=== PATIENT | female | born 1965 | race Caucasian/White ===

== ENCOUNTER 2016-10-07 12:56 | Emergency (ER) | payer OTHER ==
[~2016-10-07] VITALS: Ht 172.7 cm; Wt 127.0 kg
[2016-10-07 13:05] VITALS: BP 146/86
== END 2016-10-07 13:38 | disposition left against medical advice (07) ==
LOC: ER 12:56 → EDBD 12:56 → ER 13:38
DX: R07.9 Chest pain, unspecified (principal); E11.9 Type 2 diabetes mellitus without complications; I10 Essential (primary) hypertension; F41.9 Anxiety disorder, unspecified
CPT/HCPCS: 93005

== ENCOUNTER 2022-02-11 19:35 | Inpatient (IN) | payer MEDICAID, OTHER ==
[~2022-02-11] VITALS: Ht 175.3 cm; Wt 124.4 kg
[2022-02-11] MEDS ORDERED: NALOXONE HCL 1MG/ML 2ML SYRINGE ONE (19:38)
[2022-02-11] MEDS ORDERED: NALOXONE HCL 1MG/ML 2ML SYRINGE IV ONE (19:45)
[2022-02-11 20:24] LABS: Basophils # (auto) 0 10 ^3/uL (0-0.2); Basophils % (auto) 0.8 % (0.0-2.0); Eosinophils # (auto) 0.1 10 ^3/uL (0-0.8); Eosinophils % (auto) 1.6 % (0.0-7.0); Hematocrit 40.1 % (36.0-46.0); Hemoglobin 12.9 g/dL (12.2-16.2); Lymphocytes # (auto) 1.1 10 ^3/uL (0.4-5.4); Lymphocytes % (auto) 20.9 % (10.0-50.0); Mean Corpuscular Hemoglobin 27.9 pg (28.0-32.0); Mean Corpuscular Hgb Conc. 32.2 g/dL (32.0-36.0); Mean Corpuscular Volume 86.5 fL (80.0-100.0); Monocytes # (auto) 0.4 10 ^3/uL (0-1.3); Monocytes % (auto) 7.8 % (0.0-12.0); Neutrophils # (auto) 3.7 10 ^3/uL (1.6-8.6); Neutrophils % (auto) 68.9 % (37.0-80.0); Red Blood Cells 4.63 10^6/uL (4.0-5.20); Red Cell Distribution Width 15.4 % (11.8-14.3); White Blood Cell 5.3 10^3/uL (4.4-10.8)
[2022-02-11 20:30] VITALS: BP 110/59
[2022-02-11 20:42] LABS: Albumin 3.3 g/dL (3.4-5.0); BUN/Creatinine Ratio 14.3; Calcium 8.3 mg/dL (8.5-10.1); Potassium 3.4 mmol/L (3.5-5.1)
[2022-02-11 20:43] LABS: Acetaminophen 4.6 ug/mL (10-30); Salicylate < 1.7 mg/dL (2.8-20.0)
[2022-02-11 20:44] LABS: Bilirubin, Total 0.9 mg/dL (0.2-1.0); Total Protein 6.8 g/dL (6.4-8.2)
[2022-02-11 23:09] VITALS: BP 111/67
[2022-02-11] MEDS ORDERED: CLINDAMYCIN 600MG IV 50 ML IV ONE (23:30)
[2022-02-11] MEDS ORDERED: SODIUM CHLORIDE 0.9% 1,000 ML IV SCH (23:30)
[2022-02-11] MEDS ORDERED: NITROGLYCERIN 0.4 MG SL TAB SL PRN (23:30)
[2022-02-11] MEDS ORDERED: ONDANSETRON HCL 4 MG/2 ML VIAL IV PRN (23:30)
[2022-02-11] MEDS ORDERED: DEXTROSE (50%) 50ML SYRG IV PRN (23:30)
[2022-02-11] MEDS ORDERED: MORPHINE SULFATE INJ 2 MG/ml SYRG IV PRN (23:30)
[2022-02-11] MEDS: InsuLIN REG 1unit/0.01ml Soln (100units/ml) SC SCH (23:58)
[2022-02-12] VITALS (9 sets, daily range): BP systolic 110–167; BP diastolic 52–84
[2022-02-12 03:48] LABS: Urine Bacteria MOD /hpf (None Seen); Urine Blood Negative /uL (Negative); Urine Budding Yeast MODERATE /hpf (None Seen); Urine Hyaline Cast FEW /lpf (0 - 2); Urine Mucus FEW (None Seen); Urine Specific Gravity 1.036 (1.001-1.035); Urine WBC 4 /hpf (0 - 5)
[2022-02-12 03:54] LABS: Alcohol, Urine < 3.0 mg/dL (0-10); Amphetamine Screen, Urine NEGATIVE (NEGATIVE); Barbiturate Scree,Urine NEGATIVE (NEGATIVE); Benzodiazephine Screen, Urine POSITIVE (NEGATIVE); Cannabinoid Screen, Urine NEGATIVE (NEGATIVE); Cocaine Screen, Urine NEGATIVE (NEGATIVE); Phencyclidine Screen, Urine NEGATIVE (NEGATIVE)
[2022-02-12 04:05] LABS: Opiate Scree,Urine NEGATIVE (NEGATIVE)
[2022-02-12] MEDS ORDERED: CLINDAMYCIN 600MG IV 50 ML IV SCH (06:00)
[2022-02-12] MEDS: InsuLIN REG 1unit/0.01ml Soln (100units/ml) SC SCH ×3 (06:00→18:09)
[2022-02-12] MEDS: ACCU-CHEK COMFORT CURVE STRIP VI SCH ×4 (06:10→18:08)
[2022-02-12] MEDS ORDERED: D5W/SOD CHLO 0.9% 1,000 ML IV SCH (06:30)
[2022-02-12] MEDS: DOPamine 1600MCG/ML D5W 250 ML IV SCH ×2 (06:30→16:20)
[2022-02-12] MEDS ORDERED: DOPamine 1600MCG/ML D5W 250 ML IV ONE (06:35)
[2022-02-12 06:56] LABS: Basophils # (auto) 0.1 10 ^3/uL (0-0.2); Basophils % (auto) 0.8 % (0.0-2.0); Eosinophils # (auto) 0.1 10 ^3/uL (0-0.8); Eosinophils % (auto) 1.4 % (0.0-7.0); Hematocrit 38.6 % (36.0-46.0); Hemoglobin 12.5 g/dL (12.2-16.2); Lymphocytes % (auto) 31.6 % (10.0-50.0); Mean Corpuscular Hemoglobin 28.7 pg (28.0-32.0); Mean Corpuscular Hgb Conc. 32.4 g/dL (32.0-36.0); Mean Corpuscular Volume 88.6 fL (80.0-100.0); Monocytes # (auto) 0.5 10 ^3/uL (0-1.3); Monocytes % (auto) 7.5 % (0.0-12.0); Neutrophils # (auto) 3.7 10 ^3/uL (1.6-8.6); Neutrophils % (auto) 58.7 % (37.0-80.0); Red Blood Cells 4.36 10^6/uL (4.0-5.20); Red Cell Distribution Width 15.4 % (11.8-14.3); White Blood Cell 6.3 10^3/uL (4.4-10.8)
[2022-02-12 07:08] LABS: Potassium 4.1 mmol/L (3.5-5.1)
[2022-02-12 07:20] LABS: Albumin 3.1 g/dL (3.4-5.0); BUN/Creatinine Ratio 14.1; Bilirubin, Total 1.1 mg/dL (0.2-1.0)
[2022-02-12] MEDS ORDERED: D5W/SOD CHL 0.45% 1,000 ML IV ONE (10:30)
[2022-02-12] MEDS: PIPERACILLIN-TAZO 4.5GM 100 ML IV SCH ×2 (14:48→20:53)
[2022-02-12] MEDS ORDERED: HALOPERIDOL LACTATE 5 MG/ML INJ VIAL IM ONE (22:00)
[2022-02-13] MEDS: ACCU-CHEK COMFORT CURVE STRIP VI SCH ×5 (00:04→23:47)
[2022-02-13] MEDS: InsuLIN REG 1unit/0.01ml Soln (100units/ml) SC SCH ×5 (00:16→23:47)
[2022-02-13] MEDS: DOPamine 1600MCG/ML D5W 250 ML IV SCH ×3 (02:35→20:36)
[2022-02-13] MEDS: PIPERACILLIN-TAZO 4.5GM 100 ML IV SCH ×3 (05:02→22:00)
[2022-02-14] VITALS (46 sets, daily range): BP systolic 87–144; BP diastolic 49–82
[2022-02-14] MEDS: PIPERACILLIN-TAZO 4.5GM 100 ML IV SCH ×3 (05:50→22:18)
[2022-02-14] MEDS: InsuLIN REG 1unit/0.01ml Soln (100units/ml) SC SCH ×3 (05:51→17:19)
[2022-02-14 06:00] LABS: Basophils # (auto) 0 10 ^3/uL (0-0.2); Basophils % (auto) 0.6 % (0.0-2.0); Eosinophils # (auto) 0.2 10 ^3/uL (0-0.8); Eosinophils % (auto) 3.1 % (0.0-7.0); Hematocrit 43.3 % (36.0-46.0); Hemoglobin 14.7 g/dL (12.2-16.2); Lymphocytes # (auto) 1.3 10 ^3/uL (0.4-5.4); Lymphocytes % (auto) 21.6 % (10.0-50.0); Mean Corpuscular Hemoglobin 29.7 pg (28.0-32.0); Mean Corpuscular Volume 87.3 fL (80.0-100.0); Monocytes # (auto) 0.5 10 ^3/uL (0-1.3); Monocytes % (auto) 8.4 % (0.0-12.0); Neutrophils # (auto) 4.1 10 ^3/uL (1.6-8.6); Neutrophils % (auto) 66.3 % (37.0-80.0); Red Blood Cells 4.97 10^6/uL (4.0-5.20); White Blood Cell 6.2 10^3/uL (4.4-10.8)
[2022-02-14] MEDS: ACCU-CHEK COMFORT CURVE STRIP VI SCH ×3 (06:07→17:20)
[2022-02-14] MEDS: DOPamine 1600MCG/ML D5W 250 ML IV SCH ×2 (06:15→16:00)
[2022-02-14 06:18] LABS: Albumin 3.1 g/dL (3.4-5.0); Calcium 8.4 mg/dL (8.5-10.1); Magnesium 2.4 mg/dL (1.6-2.6); Potassium 3.5 mmol/L (3.5-5.1)
[2022-02-14 06:22] LABS: BUN/Creatinine Ratio 8.2; Bilirubin, Total 1.2 mg/dL (0.2-1.0); Total Protein 7.3 g/dL (6.4-8.2)
[2022-02-14] MEDS: ACETAMINOPHEN 325 MG TAB PO PRN (13:03)
[2022-02-14] MEDS ORDERED: LEVOTHYROXINE SODIUM 100 MCG TAB PO ONE (14:30)
[2022-02-14] MEDS ORDERED: FLUT250M2 INH (15:28)
[2022-02-14] MEDS ORDERED: QUET300T14 PO (15:28)
[2022-02-14] MEDS ORDERED: ESCI20TA PO (15:28)
[2022-02-14] MEDS ORDERED: ATOR20TA PO (15:28)
[2022-02-14] MEDS ORDERED: HYDR1CAP27 PO (15:28)
[2022-02-14] MEDS ORDERED: ROPI2TAB31 PO (15:28)
[2022-02-14] MEDS ORDERED: ASPI81CH74 PO (15:28)
[2022-02-14] MEDS ORDERED: LEVO25TA6 PO (15:31)
[2022-02-14] MEDS ORDERED: METF-370 PO (15:31)
[2022-02-14] MEDS ORDERED: LOSA25TA38 PO (15:31)
[2022-02-14] MEDS ORDERED: BENZTROPINE MESY 0.5 MG TAB PO PRN (16:30)
[2022-02-14] MEDS ORDERED: HALOPERIDOL 5 MG TAB PO PRN (16:30)
[2022-02-15] VITALS (19 sets, daily range): BP systolic 101–128; BP diastolic 38–76
[2022-02-15] MEDS: ACCU-CHEK COMFORT CURVE STRIP VI SCH ×4 (00:15→17:06)
[2022-02-15] MEDS: DOPamine 1600MCG/ML D5W 250 ML IV SCH ×3 (00:16→07:13)
[2022-02-15] MEDS: InsuLIN REG 1unit/0.01ml Soln (100units/ml) SC SCH ×4 (06:00→17:06)
[2022-02-15] MEDS: PIPERACILLIN-TAZO 4.5GM 100 ML IV SCH ×3 (06:03→22:14)
[2022-02-15] MEDS: LEVOTHYROXINE SODIUM 25 MCG TAB PO SCH (06:04)
[2022-02-15] MEDS ORDERED: LEVOTHYROXINE SODIUM 100 MCG TAB PO SCH (07:00)
[2022-02-15 08:17] LABS: Basophils # (auto) 0 10 ^3/uL (0-0.2); Basophils % (auto) 0.5 % (0.0-2.0); Eosinophils # (auto) 0.1 10 ^3/uL (0-0.8); Eosinophils % (auto) 2.1 % (0.0-7.0); Hematocrit 41.4 % (36.0-46.0); Hemoglobin 13.6 g/dL (12.2-16.2); Lymphocytes # (auto) 1.8 10 ^3/uL (0.4-5.4); Lymphocytes % (auto) 25.1 % (10.0-50.0); Mean Corpuscular Hemoglobin 28.3 pg (28.0-32.0); Mean Corpuscular Hgb Conc. 32.9 g/dL (32.0-36.0); Monocytes # (auto) 0.5 10 ^3/uL (0-1.3); Monocytes % (auto) 7.4 % (0.0-12.0); Neutrophils # (auto) 4.7 10 ^3/uL (1.6-8.6); Neutrophils % (auto) 64.9 % (37.0-80.0); Nucleated Red Blood Cells % 0.1 %; Red Blood Cells 4.82 10^6/uL (4.0-5.20); Red Cell Distribution Width 15.1 % (11.8-14.3); White Blood Cell 7.2 10^3/uL (4.4-10.8)
[2022-02-15 08:35] LABS: Albumin 3.1 g/dL (3.4-5.0); Calcium 8.4 mg/dL (8.5-10.1); Potassium 3.3 mmol/L (3.5-5.1)
[2022-02-15 08:39] LABS: BUN/Creatinine Ratio 9.2; Bilirubin, Total 1.1 mg/dL (0.2-1.0); Total Protein 7.1 g/dL (6.4-8.2)
[2022-02-15] MEDS: LORazepam 0.5 MG TAB PO PRN (11:00)
[2022-02-15] MEDS: ATORVASTATIN 20 MG TAB PO SCH (22:14)
[2022-02-15] MEDS: QUEtiapine FUMARATE 100 MG TAB PO SCH (22:14)
[2022-02-16] MEDS: ACCU-CHEK COMFORT CURVE STRIP VI SCH ×4 (00:09→18:00)
[2022-02-16 05:00] VITALS: BP 126/89
[2022-02-16] MEDS: PIPERACILLIN-TAZO 4.5GM 100 ML IV SCH ×3 (05:56→21:42)
[2022-02-16] MEDS: InsuLIN REG 1unit/0.01ml Soln (100units/ml) SC SCH ×4 (06:32→18:00)
[2022-02-16] MEDS: LEVOTHYROXINE SODIUM 25 MCG TAB PO SCH (06:58)
[2022-02-16] MEDS: DOPamine 1600MCG/ML D5W 250 ML IV SCH ×2 (07:20→17:10)
[2022-02-16 09:00] VITALS: BP 135/75
[2022-02-16] MEDS: LOSARTAN POTASSIUM 25 MG TAB PO SCH (09:40)
[2022-02-16 13:00] VITALS: BP 128/76
[2022-02-16 16:33] VITALS: BP 143/88
[2022-02-16] MEDS: QUEtiapine FUMARATE 100 MG TAB PO SCH (21:42)
[2022-02-16] MEDS: ATORVASTATIN 20 MG TAB PO SCH (21:42)
[2022-02-16 22:00] VITALS: BP 102/60
[2022-02-17] MEDS: ACCU-CHEK COMFORT CURVE STRIP VI SCH ×4 (00:03→18:33)
[2022-02-17] MEDS: DOPamine 1600MCG/ML D5W 250 ML IV SCH ×3 (03:00→22:00)
[2022-02-17 05:00] VITALS: BP 101/61
[2022-02-17] MEDS: InsuLIN REG 1unit/0.01ml Soln (100units/ml) SC SCH ×4 (06:00→18:00)
[2022-02-17] MEDS: PIPERACILLIN-TAZO 4.5GM 100 ML IV SCH ×3 (06:02→22:50)
[2022-02-17] MEDS: LEVOTHYROXINE SODIUM 25 MCG TAB PO SCH (06:02)
[2022-02-17 08:52] VITALS: BP 104/58
[2022-02-17] MEDS: LOSARTAN POTASSIUM 25 MG TAB PO SCH (09:43)
[2022-02-17 12:59] VITALS: BP 111/68
[2022-02-17 16:01] LABS: Basophils # (auto) 0 10 ^3/uL (0-0.2); Basophils % (auto) 0.6 % (0.0-2.0); Eosinophils # (auto) 0.2 10 ^3/uL (0-0.8); Eosinophils % (auto) 2.3 % (0.0-7.0); Hematocrit 41.7 % (36.0-46.0); Hemoglobin 13.6 g/dL (12.2-16.2); Lymphocytes # (auto) 1.9 10 ^3/uL (0.4-5.4); Lymphocytes % (auto) 27.2 % (10.0-50.0); Mean Corpuscular Hemoglobin 28.4 pg (28.0-32.0); Mean Corpuscular Hgb Conc. 32.6 g/dL (32.0-36.0); Mean Corpuscular Volume 87.1 fL (80.0-100.0); Monocytes # (auto) 0.6 10 ^3/uL (0-1.3); Monocytes % (auto) 8.6 % (0.0-12.0); Neutrophils # (auto) 4.3 10 ^3/uL (1.6-8.6); Neutrophils % (auto) 61.3 % (37.0-80.0); Red Blood Cells 4.79 10^6/uL (4.0-5.20); Red Cell Distribution Width 15.5 % (11.8-14.3)
[2022-02-17 16:21] LABS: Calcium 8.6 mg/dL (8.5-10.1); Potassium 4.3 mmol/L (3.5-5.1)
[2022-02-17 17:00] VITALS: BP 126/57
[2022-02-17] MEDS: LORazepam 0.5 MG TAB PO PRN (19:45)
[2022-02-17 20:00] VITALS: BP 104/58
[2022-02-17 22:00] VITALS: BP 108/76
[2022-02-17] MEDS: ATORVASTATIN 20 MG TAB PO SCH (22:27)
[2022-02-17] MEDS: QUEtiapine FUMARATE 100 MG TAB PO SCH (22:27)
[2022-02-18] MEDS: InsuLIN REG 1unit/0.01ml Soln (100units/ml) SC SCH ×4 (00:26→18:00)
[2022-02-18] MEDS: ACCU-CHEK COMFORT CURVE STRIP VI SCH ×4 (00:26→18:13)
[2022-02-18 05:00] VITALS: BP 111/67
[2022-02-18] MEDS: PIPERACILLIN-TAZO 4.5GM 100 ML IV SCH ×2 (06:57→14:22)
[2022-02-18] MEDS: LORazepam 0.5 MG TAB PO PRN ×2 (06:58→12:59)
[2022-02-18] MEDS: LEVOTHYROXINE SODIUM 25 MCG TAB PO SCH (06:58)
[2022-02-18 07:26] LABS: Calcium 8.3 mg/dL (8.5-10.1); Magnesium 2.3 mg/dL (1.6-2.6); Potassium 3.1 mmol/L (3.5-5.1)
[2022-02-18 07:28] LABS: BUN/Creatinine Ratio 13.8
[2022-02-18] MEDS: DOPamine 1600MCG/ML D5W 250 ML IV SCH (08:30)
[2022-02-18] MEDS ORDERED: POTASSIUM CHL 20 Meq TABLET PO ONE (08:30)
[2022-02-18 08:49] VITALS: BP 107/62
[2022-02-18] MEDS: LOSARTAN POTASSIUM 25 MG TAB PO SCH (10:38)
[2022-02-18] MEDS: ACETAMINOPHEN 325 MG TAB PO PRN (10:54)
[2022-02-18 13:00] VITALS: BP 117/56
[2022-02-18] MEDS ORDERED: QUET300T14 PO (14:44)
[2022-02-18 17:00] VITALS: BP 123/97
[2022-02-18 17:10] VITALS: BP 123/97
== END 2022-02-18 18:27 | disposition home or self-care (01) | DRG 917 ==
LOC: ER 19:35 → EDBD 19:35 → TELE 23:21 → ICU WEST 02-14 07:35 → TELE-CENTR 02-15 18:14 → CENTRAL 02-17 11:02
PROVIDERS: ADMIT Nurse Practitioner; ATTEND Internal Medicine
PROC: 05HD33Z Insertion of Infusion Device into Right Cephalic Vein, Percutaneous Approach (ICD-10-PCS; principal; 2022-02-12)
PROC: B54MZZA Ultrasonography of Right Upper Extremity Veins, Guidance (ICD-10-PCS; 2022-02-12)
DX: T50.991A Poisoning by other drugs, medicaments and biological substances, accidental (unintentional), initial encounter (principal); G92.8 Other toxic encephalopathy; J69.0 Pneumonitis due to inhalation of food and vomit; J44.0 Chronic obstructive pulmonary disease with (acute) lower respiratory infection; R45.851 Suicidal ideations; Z68.41 Body mass index [BMI] 40.0-44.9, adult; E87.4 Mixed disorder of acid-base balance; N17.9 Acute kidney failure, unspecified; F31.9 Bipolar disorder, unspecified; E66.01 Morbid (severe) obesity due to excess calories; E11.9 Type 2 diabetes mellitus without complications; I50.9 Heart failure, unspecified; I11.0 Hypertensive heart disease with heart failure; F41.9 Anxiety disorder, unspecified; Z20.822 Contact with and (suspected) exposure to COVID-19; Z91.51 Personal history of suicidal behavior; Z90.49 Acquired absence of other specified parts of digestive tract; Y92.89 Other specified places as the place of occurrence of the external cause
CPT/HCPCS: 36415; 36600; 70450; 71045; 80048; 80053; 80307; 80329; 81001; 82805; 82962; 83036; 83605; 83735; 84100; 84443; 84484; 85025; 87081; 93005; 93306; 94660; 96361; 96365; 96366; 96375; 97163; 99291; G0378; J1815; J2405; J2543; J3490